=== PATIENT | female | born 1980 | race Caucasian/White ===

== ENCOUNTER 2017-01-26 16:13 | Emergency (ER) | payer OTHER ==
[2017-01-26 16:13] VITALS: BMI 22.8
[2017-01-26 16:22] VITALS: O2SAT 99
--- NOTE | 2017-01-26 16:34 | ED PDOC ---
Arrival/HPI <Lillian Lee - Last Filed: 01/26/17 22:40> <Perri Guevara Y - Last Filed: 01/27/17 11:31> - General Chief Complaint: Dizziness/Lightheaded Time Seen by Provider: 01/26/17 16:20 - History of Present Illness Narrative History of Present Illness (Text): 01/26/17 17:32 36 y/o F w/ PMHx of seasonal allergies presents to the ED c/o acute onset dizziness and "chest fullness." Pt reports intermittent chest fullness [id number] associated w/ palpitations. Pt states sensation lasts <1min. Nothing seems to bring on the episodes. There no associated CP, SOB. Pt also reports sudden vertigo made worse by eye & head mvts. Dizziness started ~1hr OIL OPERATOR. Pt denies F/C , nasal congestion, PND, cough. Pt denies any numbness, tingling, weakness, diplopia or burry vision. 01/26/17 20:07 (Lillian Lee) Past Medical History - Provider Review Nursing Documentation Reviewed: Yes - Past History Past History: No Previous - Infectious Disease Hx of Infectious Diseases: None - Tetanus Immunization Tetanus Immunization: Unknown - Past Medical History Past Medical History: No Previous - Cardiac Hx Cardiac Disorders: No - Pulmonary Hx Respiratory Disorders: No - Neurological Hx Neurological Disorder: No - HEENT Hx HEENT Disorder: No - Renal Hx Renal Disorder: No - Endocrine/Metabolic Hx Endocrine Disorders: No - Hematological/Oncological Hx Blood Disorders: No - Integumentary Hx Dermatological Disorder: No - Musculoskeletal/Rheumatological Hx Musculoskeletal Disorders: No - Gastrointestinal Hx Gastrointestinal Disorders: No - Genitourinary/Gynecological Hx Genitourinary Disorders: Yes Hx Urinary Tract Infection: Yes Other/Comment: endometriosis - Psychiatric Hx Psychophysiologic Disorder: No Hx Substance Use: No - Surgical History Other/Comment: ovarian cyst removal - Anesthesia Hx Anesthesia: Yes Hx Anesthesia Reactions: No Hx Malignant Hyperthermia: No - Suicidal Assessment Feels Threatened In Home Enviroment: No <Lillian Lee - Last Filed: 01/26/17 22:40> Family/Social History - Physician Review Nursing Documentation Reviewed: Yes Family/Social History: No Known Family HX Smoking Status: Never Smoked Hx Alcohol Use: No Hx Substance Use: No Hx Substance Use Treatment: No <Lillian Lee - Last Filed: 01/26/17 22:40> Allergies/Home Meds <Lillian Lee - Last Filed: 01/26/17 22:40> <Perri Guevara Y - Last Filed: 01/27/17 11:31> Allergies/Adverse Reactions: Allergies apricot Allergy (Verified 01/26/17 16:19) RASH Review of Systems - Physician Review All systems were reviewed & negative as marked: Yes - Review of Systems Constitutional: absent: Fevers Respiratory: absent: SOB <Lillian Lee - Last Filed: 01/26/17 22:40> Physical Exam Temperature: Afebrile Blood Pressure: Hypotensive Pulse: Regular Respiratory Rate: Normal Appearance: Positive for: Well-Appearing, Comfortable Pain Distress: None Mental Status: Positive for: Alert and Oriented X 3 - Systems Exam Head: Present: Atraumatic, Normocephalic Pupils: Present: PERRL Extroacular Muscles: Present: EOMI Mouth: Present: Moist Mucous Membranes Neck: Present: Normal Range of Motion Respiratory/Chest: Present: Clear to Auscultation, Good Air Exchange. No: Respiratory Distress, Accessory Muscle Use Cardiovascular: Present: Regular Rate and Rhythm, Normal S1, S2. No: Murmurs Abdomen: Present: Normal Bowel Sounds. No: Tenderness, Distention, Peritoneal Signs Upper Extremity: Present: Normal Inspection Lower Extremity: Present: Normal Inspection Neurological: Present: GCS=15, Speech Normal, Motor Func Grossly Intact, Other ( Trevon-Hallpike positive) Skin: Present: Warm, Dry, Normal Color Psychiatric: Present: Alert, Oriented x 3, Normal Insight, Normal Concentration <Lillian Lee - Last Filed: 01/26/17 22:40> - Systems Exam Neurological: Present: GCS=15, CN II-XII Intact, Speech Normal, Motor Func Grossly Intact, Normal Sensory Function, Normal Cerebellar Funct, Gait Normal, Memory Normal <PaolaPerri Y - Last Filed: 01/27/17 11:31> Vital Signs Temp Pulse Resp BP Pulse Ox 01/26/17 20:21 98.3 F 80 16 129/89 99 01/26/17 17:36 69 18 101/69 99 01/26/17 16:21 98.6 F 75 18 96/68 L 99 Medical Decision Making - RAD Interpretation Outcomes Manager: Radiologist (CXR: negative for PTX, effusion, or active disease) - EKG Interpretation Interpreted by ED Physician: Yes (NSR, rate 64, no ST elevations) Type: 12 lead EKG <Lillian Lee - Last Filed: 01/26/17 22:40> Disposition/Present on Arrival - Present on Arrival Any Indicators Present on Arrival: No History of DVT/PE: No History of Uncontrolled Diabetes: No Urinary Catheter: No History of Decub. Ulcer: No History Surgical Site Infection Following: None - Disposition Have Diagnosis and Disposition been Completed?: Yes Disposition Time: 20:11 Patient Plan: Discharge <Lillian Lee - Last Filed: 01/26/17 22:40> <Perri Guevara - Last Filed: 01/27/17 11:31> - Disposition Diagnosis: Dizziness Disposition: HOME/ ROUTINE Condition: GOOD Discharge Instructions (ExitCare): Vertigo (ED), Benign Paroxysmal Positional Vertigo (ED), Dizziness (ED) Additional Instructions: Follow up with primary medical doctor within 1 week Take medications as prescribed Return to the ED if dizziness worsens, you experience changes in vision, and/or numbness, tingling, or weakness develops. Prescriptions: Fluticasone Nasal [Flonase] 1 spr NS DAILY #1 unit Meclizine [Meclizine*] 25 mg PO Q6 #10 tab Referrals: Lincoln Head DO [Doctor Osteopathy] - Follow up with primary Curtis Lucas MD [Staff Provider] - Follow up with primary [facility] [employer] [facility] [Outside] - Follow up with primary
[2017-01-26] MEDS ORDERED: Fluticasone Nasal 50 mcg/Spray NS STA (18:31)
--- NOTE | 2017-01-26 18:45 | RAD ---
HISTORY: sob COMPARISON: Chest x-ray performed 09/27/12 TECHNIQUE: Chest, one view. FINDINGS: LUNGS: No focal consolidation. Please note that chest x-ray has limited sensitivity for the detection of pulmonary masses. PLEURA: No significant pleural effusion identified. No definite pneumothorax . CARDIOVASCULAR: The cardiomediastinal silhouette appears within normal limits of size. OSSEOUS STRUCTURES: No acute osseous abnormality identified. VISUALIZED UPPER ABDOMEN: Unremarkable. OTHER FINDINGS: None. IMPRESSION: No focal consolidation, significant pleural effusion, or definite pneumothorax identified.
[2017-01-26 20:21] VITALS: BP 129/89; RESP 16; TEMP 98.3
[2017-01-26 20:22] VITALS: PULSE 80
--- NOTE | 2017-01-26 22:48 | CARD ---
APPROVED REPORT EKG Measurement Heart [id number] <Conclusion> Normal sinus rhythm with sinus arrhythmia Normal ECG
== END 2017-01-26 20:22 | disposition home or self-care (01) ==
LOC: ED 16:13
DX: R42 Dizziness and giddiness (principal)

== ENCOUNTER 2017-10-15 14:44 | Emergency (ER) | payer OTHER ==
[2017-10-15 16:08] VITALS: O2SAT 99; BMI 21.9
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
[2017-10-15 16:39] LABS: PH,URINE 8.5 (4.7-8.0); URINE APPEARANCE CLEAR (CLEAR); URINE BILIRUBIN NEGATIVE (NEGATIVE); URINE BLOOD NEGATIVE (NEGATIVE); URINE COLOR YELLOW (YELLOW); URINE GLUCOSE (UA) NEGATIVE (NEGATIVE); URINE LEUKOCYTE ESTERASE NEGATIVE Leu/uL (NEGATIVE); URINE NITRATE NEGATIVE (NEGATIVE); URINE PROTEIN NEGATIVE mg/dL (<30 mg/dL); URINE UROBILINOGEN 0.2 E.U./dL (<1 E.U./dL)
[2017-10-15 18:12] VITALS: BP 128/68; PULSE 84; RESP 16; TEMP 98
== END 2017-10-15 18:00 | disposition home or self-care (01) ==
LOC: ED 14:44
DX: S16.1XXA Strain of muscle, fascia and tendon at neck level, initial encounter (principal); S39.012A Strain of muscle, fascia and tendon of lower back, initial encounter; V43.52XA Car driver injured in collision with other type car in traffic accident, initial encounter

== ENCOUNTER 2018-03-04 21:16 | Observation (INO) | payer OTHER ==
--- NOTE | 2018-03-04 22:04 | ED PDOC ---
"Arrival/HPI - General Historian: Patient <Zac Cortes - Last Filed: 03/05/18 02:07> <Florentin Ferrera - Last Filed: 03/06/18 19:23> - General Chief Complaint: Back Pain Time Seen by Provider: 03/04/18 22:00 - History of Present Illness Narrative History of Present Illness (Text): 03/04/18 22:01 37 y/o female, pmh including UTI, nkda, c/o rt. sided flank pain started this morning with no fall or trauma. Aching and sharp pain, non-radiating, no pelvic pain, no fever or chills, associated with movement pain as well, no hematuria, no night sweat, no rash, no other medical or psychological complaints. (Zac Cortes) Past Medical History - Provider Review Nursing Documentation Reviewed: Yes - Past History Past History: No Previous - Infectious Disease Hx of Infectious Diseases: None - Tetanus Immunization Tetanus Immunization: Unknown - Past Medical History Past Medical History: No Previous - Cardiac Hx Cardiac Disorders: No - Pulmonary Hx Respiratory Disorders: No - Neurological Hx Neurological Disorder: No - HEENT Hx HEENT Disorder: No - Renal Hx Renal Disorder: No - Endocrine/Metabolic Hx Endocrine Disorders: No - Hematological/Oncological Hx Blood Disorders: No - Integumentary Hx Dermatological Disorder: No - Musculoskeletal/Rheumatological Hx Musculoskeletal Disorders: No - Gastrointestinal Hx Gastrointestinal Disorders: No - Genitourinary/Gynecological Hx Genitourinary Disorders: Yes Hx Urinary Tract Infection: Yes Other/Comment: endometriosis - Psychiatric Hx Psychophysiologic Disorder: No Hx Substance Use: No - Surgical History Other/Comment: ovarian cyst removal - Anesthesia Hx Anesthesia: Yes Hx Anesthesia Reactions: No Hx Malignant Hyperthermia: No - Suicidal Assessment Feels Threatened In Home Enviroment: No <Zac Cortes - Last Filed: 03/05/18 02:07> Family/Social History - Physician Review Nursing Documentation Reviewed: Yes Family/Social History: Unknown Family HX Smoking Status: Never Smoked Hx Alcohol Use: No Hx Substance Use: No Hx Substance Use Treatment: No <Zac Cortes - Last Filed: 03/05/18 02:07> Allergies/Home Meds <Zac Cortes - Last Filed: 03/05/18 02:07> <Florentin Ferrera - Last Filed: 03/06/18 19:23> Allergies/Adverse Reactions: Allergies apricot Allergy (Verified 03/04/18 21:59) RASH Review of Systems - Review of Systems Constitutional: absent: Fatigue, Fevers Eyes: absent: Vision Changes ENT: absent: Hearing Changes Respiratory: absent: SOB, Cough Cardiovascular: absent: Chest Pain Gastrointestinal: Abdominal Pain. absent: Diarrhea, Nausea, Vomiting Musculoskeletal: Back Pain. absent: Arthralgias, Neck Pain, Joint Swelling, Myalgias Skin: absent: Rash, Pruritis Psychiatric: absent: Anxiety, Depression, Suicidal Ideation <Zac Cortes - Last Filed: 03/05/18 02:07> Physical Exam - Systems Exam Head: Present: Atraumatic, Normocephalic Pupils: Present: PERRL Extroacular Muscles: Present: EOMI Conjunctiva: Present: Normal Mouth: Present: Moist Mucous Membranes Neck: Present: Normal Range of Motion Respiratory/Chest: Present: Clear to Auscultation, Good Air Exchange. No: Respiratory Distress, Accessory Muscle Use Cardiovascular: Present: Regular Rate and Rhythm, Normal S1, S2. No: Murmurs Abdomen: No: Tenderness, Distention, Peritoneal Signs, Rebound, Guarding Back: Present: Normal Inspection, CVA Tenderness (+Rt), Paraspinal Tenderness (+ rt. latismus dorsi muscle region). No: Midline Tenderness, Pain with Leg Raise , Decubitus Ulcer Upper Extremity: Present: Normal Inspection. No: Cyanosis, Edema Lower Extremity: Present: Normal Inspection. No: Edema Neurological: Present: GCS=15, CN II-XII Intact, Speech Normal, Motor Func Grossly Intact, Gait Normal, Memory Normal Skin: Present: Warm, Dry, Normal Color. No: Rashes Psychiatric: Present: Alert, Oriented x 3, Normal Insight, Normal Concentration <Zac Cortes - Last Filed: 03/05/18 02:07> Vital Signs Temp Pulse Resp BP Pulse Ox 03/05/18 02:59 65 16 100 03/05/18 00:55 98.6 F 66 18 126/79 100 03/04/18 23:11 98.0 F 66 18 100 Medical Decision Making - RAD Interpretation Drawing In Hand: Radiologist <Zac Cortes - Last Filed: 03/05/18 02:07> <Florentin Ferrera - Last Filed: 03/06/18 19:23> ED Course and Treatment: 03/04/18 22:07 Differential: Obstructive ureter stone vs. Pylonephritis vs. UTI vs. muscle spasm vs. ectopic -labs/ua -CT abdomen and pelvis -IVF/toradol/valium -Observe and reassess 03/04/18 23:44 - test is negative -CT abdomen and pelvis show here is 5 x 3 cm complex cyst in the left ovary. Followup ultrasound is advised. -Labs show no acute findings -UA ordered and pending result. -Transvaginal sonogram ordered and pending result 03/05/18 01:17 -UA show no UTI -Pending transvagnial/pelvic sonogram 03/05/18 01:27 -Pending sonogram -Pending transvagnial/pelvic sonogram 03/05/18 02:00 -pt. sleeping and easily arousable, request more pain med, percocet 1 tablet po orderred. -Case sign out and endorsed to the ER attending Dr. Ferrera for follow up the sonogram result and dispo the patient. (Zac Cortes) 03/05/18 04:38 Transvaginal US reviewed, shows: Uterus/cervix: 2.8 x 2.6 x 2.6 cm posterior fibroid, increased in size since previous exam. Endometrium measures 7 mm in diameter. Right ovary: Right ovary is normal with normal flow. Normal blood flow. Left ovary: 5.6 x 4.6 x 4.3 cm left ovarian cyst, larger than prior exam. Normal blood flow. Free fluid: No free fluid. IMPRESSION: 1. 2.8 x 2.6 x 2.6 cm posterior fibroid, increased in size since previous exam. 2. 5.6 x 4.6 x 4.3 cm left ovarian cyst, larger than prior exam. 03/05/18 04:45 Pt with persistent rt sided flank pain despite pain medication administered in Emergency department, will be admitted for further management. Case discussed with medical clinic manager and Dr. Gutierrez, who accepts pt into his service. (Florentin Ferrera) - Lab Interpretations Lab Results: 03/06/18 09:45 03/06/18 09:45 Lab Results 03/06/18 09:45: Sodium 143, Potassium 4.4, Chloride 104, Carbon Dioxide 28, Anion Gap 16, BUN 9, Creatinine 0.7, Est GFR ( Amer) > 60, Est GFR (Non- Af Amer) > 60, Random Glucose 96, Calcium 9.1, Total Bilirubin 0.2, AST 16, ALT 21, Alkaline Phosphatase 37 L, Total Protein 7.0, Albumin 3.9, Globulin 3.1, Albumin/Globulin Ratio 1.2 03/06/18 09:45: WBC 3.4 L, RBC 3.87, Hgb 9.0 L, Hct 29.8 L, MCV 77.0 L, MCH 23.3 L, MCHC 30.2 L, RDW 18.9 H, Plt Count 388, MPV 10.7, Gran % 49.2 L, Lymph % (Auto) 37.4 H, [place] % (Auto) 9.6 H, Eos % (Auto) 2.6, Baso % (Auto) 1.2, Gran # 1.68, Lymph # (Auto) 1.3, [place] # (Auto) 0.3, Eos # (Auto) 0.1, Baso # (Auto) 0.04 03/05/18 09:00: Sodium 139, Potassium 4.0, Chloride 106, Carbon Dioxide 24, Anion Gap 13, BUN 7, Creatinine 0.5 L, Est GFR ( Amer) > 60, Est GFR (Non -Af Amer) > 60, Random Glucose 89, Calcium 8.3 L, Total Bilirubin 0.4, AST 21, ALT 33, Alkaline Phosphatase 39, Total Protein 6.3, Albumin 3.4, Globulin 2.9, Albumin/Globulin Ratio 1.2 03/05/18 09:00: WBC 3.9 L D, RBC 3.52, Hgb 8.5 L, Hct 27.1 L, MCV 77.0 L, MCH 24.1 L, MCHC 31.4, RDW 19.1 H, Plt Count 342, MPV 11.0, Gran % 48.0 L, Lymph % ( Auto) 37.2 H, [place] % (Auto) 11.4 H, Eos % (Auto) 2.6, Baso % (Auto) 0.8, Gran # 1.86, Lymph # (Auto) 1.4, [place] # (Auto) 0.4, Eos # (Auto) 0.1, Baso # (Auto) 0.03 03/04/18 22:35: WBC 6.9 D, RBC 4.11, Hgb 9.8 L, Hct 30.7 L, MCV 74.7 L, MCH 23.8 L, MCHC 31.9, RDW 18.7 H, Plt Count 434, MPV 10.5, Gran % 50.1, Lymph % ( Auto) 38.2 H, [place] % (Auto) 8.9 H, Eos % (Auto) 2.2, Baso % (Auto) 0.6, Gran # 3.45, Lymph # (Auto) 2.6, [place] # (Auto) 0.6, Eos # (Auto) 0.2, Baso # (Auto) 0.04 03/04/18 22:35: Sodium 141, Potassium 4.1, Chloride 104, Carbon Dioxide 24, Anion Gap 18, BUN 11, Creatinine 0.6 L, Est GFR ( Amer) > 60, Est GFR ( Non-Af Amer) > 60, Random Glucose 94, Calcium 9.3, Magnesium 2.0, Total Bilirubin 0.2, AST 34, ALT 30, Alkaline Phosphatase 48, Total Protein 8.1, Albumin 4.6, Globulin 3.5, Albumin/Globulin Ratio 1.3 03/04/18 22:06: Urine Color Yellow, Urine Appearance Clear, Urine pH 6.0, Ur Specific [place] >= 1.030, Urine Protein Negative, Urine Glucose (UA) Negative, Urine Ketones Trace H, Urine Blood Trace-intact H, Urine Nitrate Negative, Urine Bilirubin Negative, Urine Urobilinogen 0.2, Ur Leukocyte Esterase Negative , Urine RBC 0 - 2, Urine WBC 0 - 2, Ur Epithelial Cells 1 - 3, Calcium Oxalate Crystal Mod, Urine Bacteria Small - RAD Interpretation Radiology Orders: 03/04/18 22:05 ABD & PELVIS W/O PO OR IV CONT [CT] Stat 03/04/18 23:29 TRANSVAGINAL [US] Stat 03/05/18 05:58 SPINAL CANAL LUMBAR W/O CONT [MRI] Routine SPINAL CANAL THORACIC W/O CONT [MRI] Routine ABD & PELVIS W/O PO OR IV CONT [CT] Stat CT - ABD PELVIS W/O PO OR IV CONT 2016-07-31 19:40 FINDINGS: Limitations: Limited evaluation due to lack of IV contrast. Lung bases: Unremarkable. No mass. No consolidation. ABDOMEN: Liver: Unremarkable. Gallbladder and bile ducts: Unremarkable. No calcified stones. No ductal dilation. Pancreas: Unremarkable. No ductal dilation. Spleen: Unremarkable. No splenomegaly. Adrenals: Unremarkable. No mass. Kidneys and ureters: Unremarkable. No obstructing stones. No hydronephrosis. Stomach and bowel: Unremarkable. No obstruction. No mucosal thickening. PELVIS: Appendix: No findings to suggest acute appendicitis. Bladder: Unremarkable. No stones. Reproductive: There is 5 x 3 cm cyst in the left ovary. Followup ultrasound is advised. LOWELL RUSHING | Preliminary Radiology Report PERSHING MISSILE CREWMEMBER (QA) DISCREPANCY? If there is a discrepancy between the preliminary and final interpretation, please notify [employer] via [email or web address]. If you do not have access to our QA portal, call our QA team at [phone] CONFIDENTIALITY STATEMENT This report is intended only for the use of the referring physician, and only in accordance with law, If you received this in error, call [phone] Page 2 of 2 ABDOMEN and PELVIS: Intraperitoneal space: Unremarkable. No free air. No significant fluid collection. Bones/joints: No acute fracture. No dislocation. Soft tissues: Unremarkable. Vasculature: Unremarkable. No abdominal aortic aneurysm. Lymph nodes: Unremarkable. No enlarged lymph nodes. IMPRESSION: There is 5 x 3 cm ? complex cyst in the left ovary. Followup ultrasound is advised. Thank you for allowing us to participate in the care of your patient. Dictated and Authenticated by: Tete Shukla MD 03/04/2018 11:15 PM Eastern Time ([place] & [place]) 03/04/18 23:29 TRANSVAGINAL [US] Stat (Zac Cortes) - Medication Orders Current Medication Orders: Acetaminophen (Tylenol 325mg Tab) 650 mg PO Q6H PRN PRN Reason: Pain, Mild (1-3) Cyclobenzaprine HCl (Flexeril) 5 mg PO TID [facility] Last Admin: 03/06/18 17:26 Dose: 5 mg Lidocaine (Lidoderm) 1 ea TD BID YULIET Last Admin: 03/06/18 17:27 Dose: 1 ea MAR Transdermal Patch Site Document 03/06/18 17:27 GM (Rec: 03/06/18 17:27 GM [id number]) Transdermal Patch Site Transdermal Patch Site Right Lower Back Oxycodone/Acetaminophen (Percocet 5/325 Mg Tab) 1 tab PO Q8H PRN PRN Reason: Pain, moderate (4-7) Stop: 03/08/18 05:59 Last Admin: 03/06/18 17:26 Dose: 1 tab MAR Pain Assessment Document 03/06/18 17:26 GM (Rec: 03/06/18 17:27 GM [id number]) Pain Reassessment Is this a pain reassessment? No Presence of Pain Presence of Pain Yes Pain Scale Used Pain Scale Used Numeric Location Upper or Lower Lower Pain Location Body Site Back Description Description Constant Pain Behavior Moaning Alleviating Factors/Management Medication Techniques Alleviating Factors Medication Discontinued Medications Diazepam (Valium) 10 mg PO ONCE ONE PRN Reason: Protocol Stop: 03/04/18 22:06 Last Admin: 03/04/18 22:43 Dose: 10 mg Sodium Chloride (Sodium Chloride 0.9%) 1,000 mls @ 999 mls/hr IV .Q1H1M STA Stop: 03/04/18 23:05 Last Admin: 03/04/18 22:44 Dose: 999 mls/hr eMAR Start Stop Document 03/04/18 22:44 (Rec: 03/04/18 22:44 [email or web address]) Intravenous Solution Start Date 03/04/18 Start Time 22:44 Ketorolac Tromethamine (Toradol) 30 mg IVP STAT STA Stop: 03/04/18 22:06 Last Admin: 03/04/18 22:43 Dose: 30 mg MAR Pain Assessment Document 03/04/18 22:43 (Rec: 03/04/18 22:44 [facility]) Pain Reassessment Is this a pain reassessment? No Sleep Is patient sleeping during reassessment? No Presence of Pain Presence of Pain Yes Pain Scale Used Pain Scale Used Numeric IVP Administration Document 03/04/18 22:43 (Rec: 03/04/18 22:44 [facility]) Charges for Administration # of IVP Administrations 1 Morphine Sulfate (Morphine) 2 mg IVP STAT STA Stop: 03/05/18 04:43 Oxycodone/Acetaminophen (Percocet 5/325 Mg Tab) 1 tab PO STAT STA Stop: 03/05/18 01:27 Last Admin: 03/05/18 01:40 Dose: 1 tab MAR Pain Assessment Document 03/05/18 01:40 (Rec: 03/05/18 01:40 [place] [id number]) Pain Reassessment Is this a pain reassessment? Yes Sleep Is patient sleeping during reassessment? No Presence of Pain Presence of Pain Yes Pain Scale Used Pain Scale Used Numeric - PA / LITERACY COORDINATOR / Resident Statement ARUN has reviewed & agrees with the documentation as recorded. <Zac Cortes - Last Filed: 03/05/18 02:07> - PA / LITERACY COORDINATOR / Resident Statement ARUN has reviewed & agrees with the documentation as recorded. / has examined the patient and agrees with the treatment plan. <Florentin Ferrera - Last Filed: 03/06/18 19:23> Disposition/Present on Arrival - Present on Arrival Any Indicators Present on Arrival: No History of DVT/PE: No History of Uncontrolled Diabetes: No Urinary Catheter: No History of Decub. Ulcer: Yes History Surgical Site Infection Following: None - Disposition Have Diagnosis and Disposition been Completed?: Yes Disposition Time: 23:45 <Zac Cortes - Last Filed: 03/05/18 02:07> - Present on Arrival Any Indicators Present on Arrival: No History of DVT/PE: No History of Uncontrolled Diabetes: No Urinary Catheter: No History of Decub. Ulcer: No History Surgical Site Infection Following: None - Disposition Have Diagnosis and Disposition been Completed?: Yes Disposition Time: 04:48 Patient Plan: Observation <Florentin Ferrera - Last Filed: 03/06/18 19:23> - Disposition Diagnosis: Intractable back pain Disposition: HOSPITALIZED Patient Problems: Current Active Problems Problem Status Onset Intractable back pain Acute Condition: STABLE"
[2018-03-04] MEDS ORDERED: Sodium Chloride 0.9% 1,000 ML IV STA (22:05)
[2018-03-04 22:50] LABS: BASO # 0.04 K/mm3 (0.0-2.0); BASO % 0.6 % (0.0-3.0); EOS # 0.2 (0.0-0.7); EOS % 2.2 % (1.5-5.0); GRAN # 3.45 (1.4-6.5); GRAN % 50.1 % (50.0-68.0); HEMOGLOBIN 9.8 g/dL (12.0-16.0); LYMPH # 2.6 (1.2-3.4); LYMPH % 38.2 % (22.0-35.0); MEAN CELL VOLUME 74.7 fl (80.0-105.0); MEAN CORPUSCULAR HEMOGLOBIN 23.8 pg (25.0-35.0); MEAN CORPUSCULAR HGB CONC 31.9 g/dl (31.0-37.0); MEAN PLATELET VOLUME 10.5 fl (7.0-11.0); MONO # 0.6 (0.1-0.6); MONO % 8.9 % (1.0-6.0); RBC 4.11 10^6/uL (3.5-6.1); RED CELL DISTRIBUTION WIDTH 18.7 % (11.5-14.5); WHITE BLOOD COUNT 6.9 10^3/ul (4.5-11.0)
[2018-03-04 22:58] LABS: ALB/GLOB RATIO 1.3 (1.1-1.8); ALBUMIN 4.6 g/dL (3.0-4.8); ALT/SGPT 30 U/L (7-56); AST/SGOT 34 U/L (14-36); BLOOD UREA NITROGEN 11 mg/dL (7-21); CALCIUM 9.3 mg/dL (8.4-10.5); GFR AFRICAN-AMERICAN > 60; GFR NON-AFRICAN AMERICAN > 60
[2018-03-05 00:11] LABS: URINE BILIRUBIN NEGATIVE (NEGATIVE); URINE BLOOD TRACE-INTACT (NEGATIVE); URINE GLUCOSE (UA) NEGATIVE (NEGATIVE); URINE LEUKOCYTE ESTERASE NEGATIVE Leu/uL (NEGATIVE); URINE PROTEIN NEGATIVE mg/dL (<30 mg/dL); URINE UROBILINOGEN 0.2 E.U./dL (<1 E.U./dL)
[2018-03-05 00:12] LABS: URINE APPEARANCE CLEAR (CLEAR); URINE COLOR YELLOW (YELLOW)
[2018-03-05 00:38] LABS: URINE RBC 0 - 2 /hpf (0-2); URINE WBC 0 - 2 /hpf (0-6)
[2018-03-05 00:39] LABS: URINE BACTERIA SMALL (NEG); URINE CALCIUM OXALATE CRYSTALS MOD /hpf
[2018-03-05] MEDS ORDERED: Oxycodone/Acetaminophen 5/325 mg Tab PO STA (01:26)
[2018-03-05] MEDS ORDERED: Morphine 2 mg/ml ISec IVP STA (04:42)
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
[2018-03-05 07:41] VITALS: BMI 21.9
[2018-03-05 09:32] LABS: HEMOGLOBIN 8.5 g/dL (12.0-16.0); MEAN CORPUSCULAR HEMOGLOBIN 24.1 pg (25.0-35.0); MEAN CORPUSCULAR HGB CONC 31.4 g/dl (31.0-37.0); RBC 3.52 10^6/uL (3.5-6.1); RED CELL DISTRIBUTION WIDTH 19.1 % (11.5-14.5); WHITE BLOOD COUNT 3.9 10^3/ul (4.5-11.0)
[2018-03-05] MEDS: Lidocaine 5% Patch TD SCH ×2 (09:32→17:05)
[2018-03-05] MEDS: Oxycodone/Acetaminophen 5/325 mg Tab PO PRN ×2 (09:32→19:36)
[2018-03-05 09:33] LABS: BASO # 0.03 K/mm3 (0.0-2.0); BASO % 0.8 % (0.0-3.0); EOS # 0.1 (0.0-0.7); EOS % 2.6 % (1.5-5.0); GRAN # 1.86 (1.4-6.5); LYMPH # 1.4 (1.2-3.4); LYMPH % 37.2 % (22.0-35.0); MONO # 0.4 (0.1-0.6); MONO % 11.4 % (1.0-6.0)
--- NOTE | 2018-03-05 09:38 | US ---
Date of service: 03/05/2018 HISTORY: evaluate bilateral ovaries COMPARISON: 04/04/2016. TECHNIQUE: Transvaginal pelvic ultrasound was performed. FINDINGS: UTERUS: Measures 7.3 x 4.5 x 6.0 cm. Anteverted an enlarged. There is a 2.8 x 2.6 x 2.6 cm posterior wall submucosal fibroid which mildly intense on the posterior endometrium, increased in size since the prior examination. ENDOMETRIUM: Measures 7.0 mm in diameter. Normal in appearance. CERVIX: No cervical abnormality identified. RIGHT OVARY: Measures 3.0 x 2.8 x 2.5 cm. No solid mass. Normal flow. LEFT OVARY: Measures 5.6 x 4.6 x 5.5 cm. No solid mass. Normal flow. There is a 4.3 x 3.6 x 4.6 cm simple cyst increased in size since the prior examination. FREE FLUID: No significant free fluid noted. OTHER FINDINGS: None. IMPRESSION: 1. Interval increase in size of 4.6 cm simple cyst in the left ovary. No evidence for torsion. Follow-up ultrasound in 3-6 month interval is recommended to assess stability/ resolution. 2. Interval increase in size of 2.8 x 2.6 x 2.6 cm posterior wall submucosal fibroid. A preliminary report was provided by [facility].
[2018-03-05 09:40] LABS: ALB/GLOB RATIO 1.2 (1.1-1.8); ALBUMIN 3.4 g/dL (3.0-4.8); ALT/SGPT 33 U/L (7-56); AST/SGOT 21 U/L (14-36); BLOOD UREA NITROGEN 7 mg/dL (7-21); CALCIUM 8.3 mg/dL (8.4-10.5); GFR AFRICAN-AMERICAN > 60; GFR NON-AFRICAN AMERICAN > 60
--- NOTE | 2018-03-05 11:51 | CT ---
Date of service: 03/04/2018 PROCEDURE: CT Abdomen and Pelvis without intravenous contrast HISTORY: Right flank pain x 1 day COMPARISON: None. TECHNIQUE: CT scan of the abdomen and pelvis was performed without administration of intravenous contrast. Oral contrast was not administered. Coronal and sagittal reformatted images were obtained. Radiation dose: Total exam DLP = 323.45 mGy-cm. This CT exam was performed using one or more of the following dose reduction techniques: Automated exposure control, adjustment of the mA and/or kV according to patient size, and/or use of iterative reconstruction technique. FINDINGS: LOWER THORAX: The lung bases are clear. LIVER: Normal in size. No gross lesion or ductal dilatation. GALLBLADDER AND BILE DUCTS: Unremarkable. PANCREAS: Normal in size. No gross lesion or ductal dilatation. SPLEEN: Normal in size. ADRENALS: No discrete nodule. KIDNEYS AND URETERS: Normal in size. No hydronephrosis or nephrolithiasis. VASCULATURE: No aortic aneurysm. BOWEL: Unremarkable. No obstruction. No gross mural thickening. APPENDIX: Normal appendix. PERITONEUM: No free fluid. No free air. LYMPH NODES: No enlarged lymph nodes. BLADDER: The bladder is decompressed. REPRODUCTIVE: The uterus is normal in size.There is a 5.0 x 2.2 x 4.1 cm cyst in the left ovary. BONES: No acute fracture. OTHER FINDINGS: None. IMPRESSION: 5.0 x 2.2 x 4.1 cm cyst in the left ovary. Correlation with pelvic ultrasound is recommended. No nephrolithiasis or hydronephrosis. A preliminary report was provided by [facility].
--- NOTE | 2018-03-05 14:23 | MRI ---
Date of service: 03/05/2018 PROCEDURE: MR LUMBAR SPINE WITHOUT CONTRAST HISTORY: Back pain COMPARISON: 05/22/2015. TECHNIQUE: Multiecho multiplanar sequences were performed through the lumbar spine without the use of intravenous contrast. FINDINGS: There is normal alignment of the lumbar vertebral bodies. There is normal lumbar lordosis. There is no acute fracture, spondylolysis or spondylolisthesis. Bone marrow signal is within normal limits. The conus medullaris terminates at a normal level and the nerve roots of cauda equina are normal. The paraspinous soft tissues are normal. Imaged portion of the retroperitoneum is within normal limits. DISC SPACES: The disc heights are maintained. There is normal signal intensity in the discs. T12-L1: No disc herniation, spinal canal stenosis or neural foraminal narrowing. L1-2: No disc herniation, spinal canal stenosis or neural foraminal narrowing. L2-3: No disc herniation, spinal canal stenosis or neural foraminal narrowing. L3-4: No disc herniation, spinal canal stenosis or neural foraminal narrowing. L4-5: No disc herniation, spinal canal stenosis or neural foraminal narrowing. L5-S1: No disc herniation, spinal canal stenosis or neural foraminal narrowing. OTHER FINDINGS: There are perineural cysts in the sacrum. IMPRESSION: No large disc herniation, neural foraminal or spinal canal stenosis. Redemonstration of perineural cysts in the sacrum.
--- NOTE | 2018-03-05 14:59 | MRI ---
Date of service: 03/05/2018 PROCEDURE: MR THORACIC SPINE WITHOUT CONTRAST HISTORY: Back pain COMPARISON: None available. TECHNIQUE: Multiecho multiplanar sequences were performed through the thoracic spine without the use of intravenous contrast. FINDINGS: ALIGNMENT: There is normal alignment of the thoracic vertebral bodies. There is normal thoracic kyphosis. VERTEBRA: Vertebral height is normal. There is no acute fracture. MARROW: Marrow signal is within normal limits. PARASPINAL SOFT TISSUES: The paraspinous soft tissues are normal. CORD: The thoracic cord is normal in contour and caliber. No volume loss, signal abnormality or syrinx. DISCS: At T1-2, left foraminal disc protrusion and mild neural foraminal narrowing. No spinal canal stenosis. Mild posterior disc bulges at T2-3 and T3-4 without neural foraminal narrowing or spinal canal stenosis. No large disc herniation, neural foraminal or spinal canal stenosis at the remaining disc levels. OTHER FINDINGS: None. IMPRESSION: Left foraminal disc protrusion at T1-2 with mild left neural foraminal narrowing. No spinal canal stenosis. No large central disc protrusion, neural foraminal stenosis or spinal canal stenosis.
[2018-03-06] MEDS: Oxycodone/Acetaminophen 5/325 mg Tab PO PRN ×2 (09:25→17:26)
[2018-03-06] MEDS: Lidocaine 5% Patch TD SCH ×2 (09:26→17:27)
[2018-03-06 10:20] LABS: ALB/GLOB RATIO 1.2 (1.1-1.8); ALBUMIN 3.9 g/dL (3.0-4.8); ALT/SGPT 21 U/L (7-56); AST/SGOT 16 U/L (14-36); BLOOD UREA NITROGEN 9 mg/dL (7-21); CALCIUM 9.1 mg/dL (8.4-10.5); GFR AFRICAN-AMERICAN > 60; GFR NON-AFRICAN AMERICAN > 60
[2018-03-06 10:36] LABS: BASO # 0.04 K/mm3 (0.0-2.0); BASO % 1.2 % (0.0-3.0); EOS # 0.1 (0.0-0.7); EOS % 2.6 % (1.5-5.0); GRAN # 1.68 (1.4-6.5); GRAN % 49.2 % (50.0-68.0); LYMPH # 1.3 (1.2-3.4); LYMPH % 37.4 % (22.0-35.0); MEAN CORPUSCULAR HEMOGLOBIN 23.3 pg (25.0-35.0); MEAN CORPUSCULAR HGB CONC 30.2 g/dl (31.0-37.0); MEAN PLATELET VOLUME 10.7 fl (7.0-11.0); MONO # 0.3 (0.1-0.6); MONO % 9.6 % (1.0-6.0); RBC 3.87 10^6/uL (3.5-6.1); RED CELL DISTRIBUTION WIDTH 18.9 % (11.5-14.5); WHITE BLOOD COUNT 3.4 10^3/ul (4.5-11.0)
--- NOTE | 2018-03-06 14:37 | PN ---
DATE: 03/06/2018 SUBJECTIVE: A 37-year-old female. The patient complains of vague discomfort over the right groin area. No orthopedic findings that could suggest a hip involvement. Her joint moves freely. There was suggestion of neuritis or pinched nerve from the MRI report. The patient might need to have a Neurology consult if medical service could request a Neurology consult to make sure all areas are covered. There is left foraminal disk protrusion at T1-T2, which is unusual and make sure that does not have neuropathy of some sort as I cannot find any orthopedic reason for the pain in the right hip. The MRI of the lumbar spine shows no disk herniation or foraminal stenosis. The motion of the right hip is complete without any undue discomfort or limitation. I will certainly continue physical therapy and get a Neurology evaluation to see if there is any findings on that filed. Right now that is subjective complains, I will await the objective findings. Gurjit Agarwal DO
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
[2018-03-07] MEDS: Oxycodone/Acetaminophen 5/325 mg Tab PO PRN ×2 (02:21→09:02)
[2018-03-07 06:39] LABS: BASO # 0.05 K/mm3 (0.0-2.0); BASO % 1.2 % (0.0-3.0); EOS # 0.2 (0.0-0.7); EOS % 4.1 % (1.5-5.0); GRAN # 1.11 (1.4-6.5); GRAN % 26.9 % (50.0-68.0); HEMOGLOBIN 9.1 g/dL (12.0-16.0); LYMPH # 2.5 (1.2-3.4); LYMPH % 59.8 % (22.0-35.0); MEAN CELL VOLUME 76.6 fl (80.0-105.0); MEAN CORPUSCULAR HEMOGLOBIN 23.7 pg (25.0-35.0); MEAN PLATELET VOLUME 10.7 fl (7.0-11.0); MONO # 0.3 (0.1-0.6); RBC 3.84 10^6/uL (3.5-6.1); RED CELL DISTRIBUTION WIDTH 18.7 % (11.5-14.5); WHITE BLOOD COUNT 4.1 10^3/ul (4.5-11.0)
[2018-03-07 07:28] LABS: ALB/GLOB RATIO 1.2 (1.1-1.8); ALBUMIN 3.6 g/dL (3.0-4.8); ALT/SGPT 23 U/L (7-56); AST/SGOT 20 U/L (14-36); BLOOD UREA NITROGEN 11 mg/dL (7-21); CALCIUM 8.3 mg/dL (8.4-10.5); GFR AFRICAN-AMERICAN > 60; GFR NON-AFRICAN AMERICAN > 60
[2018-03-07] MEDS: Lidocaine 5% Patch TD SCH (09:01)
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
--- NOTE | 2018-03-07 14:29 | CP.PCM.PN ---
Subjective - Date & Time of Evaluation Date of Evaluation: 03/07/18 Time of Evaluation: 14:26 - Subjective Subjective: Ceferino Berry D.O PGY-1, Internal Medicine progress note for Dr. Sanchez Patient was examined at bedside, no acute overnight events. Patient complains of right lower back pain that radiates to her right thighs. Patient states that the pain is 9/10 when she moves but denies feeling pain when at rest. Denies fevers, chills, chest pain, shortness of breath, abdominal pain, N/V/D. Objective - Vital Signs/Intake and Output Vital Signs (last 24 hours): Temp Pulse Resp BP Pulse Ox 97.2 F L 53 L 18 90/60 L 99 03/07/18 08:18 03/07/18 08:18 03/07/18 08:18 03/07/18 08:18 03/07/18 08:18 Intake and Output: 03/07/18 03/07/18 06:59 18:59 Intake Total 540 600 Balance 540 600 - Medications Medications: Current Medications Acetaminophen (Tylenol 325mg Tab) 650 mg PO Q6H PRN PRN Reason: Pain, Mild (1-3) Cyclobenzaprine HCl (Flexeril) 5 mg PO TID [facility] Last Admin: 03/07/18 13:08 Dose: 5 mg Ibuprofen (Motrin Tab) 400 mg PO Q6H PRN PRN Reason: Pain, moderate (4-7) Lidocaine (Lidoderm) 1 ea TD BID [facility] Last Admin: 03/07/18 09:01 Dose: 1 ea - Labs Labs: 03/07/18 06:00 03/07/18 06:00 - Constitutional Appears: No Acute Distress - Head Exam Head Exam: ATRAUMATIC, NORMAL INSPECTION - Eye Exam Eye Exam: Normal appearance - ENT Exam ENT Exam: Mucous Membranes Moist - Respiratory Exam Respiratory Exam: Clear to Ausculation Bilateral. absent: Rales, Rhonchi, Wheezes - Cardiovascular Exam Cardiovascular Exam: REGULAR RHYTHM, +S1, +S2. absent: Gallop, Rubs, Murmur - GI/Abdominal Exam GI & Abdominal Exam: Soft, Tenderness, Normal Bowel Sounds Additional comments: Right lower quadrant tender to palpation - Extremities Exam Extremities Exam: absent: Calf Tenderness, Pedal Edema - Back Exam Back Exam: tenderness. absent: CVA tenderness (L), CVA tenderness (R), paraspinal tenderness Additional comments: Tender to palpation on the right lower back muscles that radiates towards the right thigh - Neurological Exam Neurological Exam: Alert, Awake, Oriented x3 - Psychiatric Exam Psychiatric exam: Normal Affect, Normal Mood - Skin Skin Exam: Dry, Normal Color, Warm Assessment and Plan - Assessment and Plan (Free Text) Assessment: 37 year old female with past medical history of endometriosis presents with and subsequently admitted for intractable back pain that radiates to her right thighs and gait instability. Plan: Right sided flank pain and gait instability - MRI Lumbar/ thoracic spine (03/05): No dislocation, herniation. Redemonstration of perineural cysts in the sacrum - CTAP (03/04): negative for nephrolithiasis; only positive for ovarian cyst - Physical Therapy for evaluation and treatment - Right sided straight leg raise positive; no signs/symptoms of saddle paresthesias - c/w Flexeril 5 TID - c/w Lidocaine patch BID - c/w Tylenol 650mg Q6H PRN mild pain - Started Motrin 400mg Q6H PRN moderate pain - Neurology consulted - Brain MRI ordered - Orthopedic surgery consulted- no orthopedic findings that suggest hip involvement. Right lower quadrant pain - Likely secondary to endometriosis - CTAP findings as above - Transvaginal US (03/04) - posterior uterine fibroid - Pain management as above DVT prophylaxis - SCD's Patient seen, and plan discussed with Attending Physician Dr. Sanchez
[2018-03-07] MEDS ORDERED: Gadodiamide 287 MG/ML VIAL (15ML) IV ONE (16:31)
[2018-03-07 19:16] VITALS: BP 119/79; PULSE 72; RESP 19; TEMP 98.5; O2SAT 100
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
--- NOTE | 2018-03-08 08:18 | MRI ---
Date of service: 03/07/2018 PROCEDURE: MRI BRAIN WITH AND WITHOUT CONTRAST HISTORY: Rule out multiple sclerosis COMPARISON: None. TECHNIQUE: Multiplanar, multisequence MR images of the brain were obtained with and without intravenous contrast enhancement. 15 cc of Omniscan FINDINGS: HEMORRHAGE: None DWI: No evidence of an acute or early subacute infarction. BRAIN PARENCHYMA: No mass,mass effect or edema. No atrophy or chronic microvascular ischemic changes. ENHANCEMENT: No abnormal intracranial enhancement. VENTRICLES: Unremarkable. No hydrocephalus. CRANIUM: Unremarkable. ORBITS: Grossly unremarkable. PARANASAL SINUSES/MASTOIDS: Minimal retention cysts in the maxillary sinuses VASCULAR SYSTEM: Skull base flow voids intact. OTHER FINDINGS: The report concurs with the preliminary [facility] report. IMPRESSION: Unremarkable pre and post contrast enhanced MRI of the brain.
== END 2018-03-07 19:00 | disposition home or self-care (01) ==
LOC: ED 21:16 → ERH 03-05 04:46 → 3RNO 03-05 06:41 → OBSVTOIN 03-06 15:34 → INTOOBSV 03-06 15:34
PROVIDERS: ADMIT Internal Medicine; ATTEND Internal Medicine
DX: R10.31 Right lower quadrant pain (principal); D25.0 Submucous leiomyoma of uterus; N83.202 Unspecified ovarian cyst, left side; N80.9 Endometriosis, unspecified; D64.9 Anemia, unspecified; M51.24 Other intervertebral disc displacement, thoracic region; M51.26 Other intervertebral disc displacement, lumbar region; D72.819 Decreased white blood cell count, unspecified; Z87.440 Personal history of urinary (tract) infections
CPT/HCPCS: 36415; 70553; 72146; 72148; 74176; 76830; 80053; 81001; 81003; 83735; 85025; 96374; 97116; 97162; 97530; 99282; A9579; G0378; G8978; G8979; J7030